=== PATIENT | male | born 1990 | race Caucasian/White ===

== ENCOUNTER 2020-05-30 12:42 | Outpatient (REF) | payer SELFPAY ==
[2020-05-30 13:28] LABS: Cholesterol 152 mg/dL
== END 2020-05-30 12:43 | disposition home or self-care (01) ==
LOC: HO.LNC 12:42
PROVIDERS: Visit Provider Pathology Anatomic Pathology & Clinical Pathology
DX: Z13.89 Encounter for screening for other disorder (principal)
CPT/HCPCS: 36415; 82465